=== PATIENT | female | born 1945 | race Caucasian/White ===

== ENCOUNTER 2016-07-16 03:41 | Inpatient (IN) | payer MEDICARE, MEDICAID ==
[~2016-07-16] VITALS: Ht 165.1 cm; Wt 57.5 kg
[2016-07-16] MEDS ORDERED: ASPIRIN 81 MG CHEW TAB ONE (05:04)
[2016-07-16] MEDS ORDERED: DUONEB INH ONE ×3 (05:19→22:55)
[2016-07-16] MEDS ORDERED: METHYLPRED SOD SUCC 125 MG/2 ML VIAL ONE (05:34)
[2016-07-16] MEDS ORDERED: AZITHROMYCIN 500 MG VIAL IV ONE (06:28)
[2016-07-16] MEDS ORDERED: SODIUM CHLORIDE 0.9% 1,000 ML ONE (06:29)
[2016-07-16] MEDS ORDERED: CEFTRIAXONE 1 GM VIAL ONE (06:29)
[2016-07-16] MEDS ORDERED: SODIUM CHLORIDE 0.9% 250 ML IV ONE (06:29)
[2016-07-16] MEDS ORDERED: SODIUM CHLORIDE 0.9% 100 ML IV ONE (06:29)
[2016-07-16 08:57] VITALS: BP_SYST 105; RESP 18; TEMP 98.1
[2016-07-16] MEDS ORDERED: SALINE FLUSH 10 ML FLUSH PRN (09:25)
[2016-07-16] MEDS ORDERED: ONDANSETRON 4 MG VIAL IV PRN (09:25)
[2016-07-16] MEDS ORDERED: DUONEB INH PRN (10:40)
[2016-07-16 12:03] VITALS: BP_SYST 101; RESP 18; TEMP 98.2
[2016-07-16] MEDS: CYPROHEPTADINE 4 MG TAB PO SCH ×3 (12:59→20:48)
[2016-07-16] MEDS: METHYLPRED SOD SUCC 40 MG VIAL IV SCH ×2 (12:59→20:49)
[2016-07-16] MEDS: ENOXAPARIN 40 MG/0.4 ML SYR SUBQ SCH (13:01)
[2016-07-16] MEDS: DUONEB INH SCH ×3 (13:59→23:00)
[2016-07-16 14:00] VITALS: RESP 20
[2016-07-16] MEDS: ACETAMINOPHEN 325 MG TAB PO PRN ×2 (14:17→18:41)
[2016-07-16] MEDS ORDERED: NEB-ALBUTEROL 2.5 MG/3 ML INH SCH (15:00)
[2016-07-16] MEDS ORDERED: RIFAMPIN 300 MG CAP PO SCH (16:00)
[2016-07-16 16:01] VITALS: BP_SYST 100; RESP 18; TEMP 98.1
[2016-07-16 16:03] VITALS: Ht 165.1 cm; Wt 57.5 kg
[2016-07-16] MEDS: MEGESTROL ACE 40 MG TAB PO SCH ×2 (16:53→20:49)
[2016-07-16] MEDS: NEB-BROVANA 15 MCG/2 ML INH SCH (19:07)
[2016-07-16 19:30] VITALS: BP_SYST 99; RESP 18; TEMP 98.6
[2016-07-16] MEDS: SALINE FLUSH 10 ML FLUSH SCH (20:49)
[2016-07-16 23:00] VITALS: BP_SYST 112; RESP 18; TEMP 97.8
[2016-07-17 03:00] VITALS: BP_SYST 106; RESP 17; TEMP 98.1
[2016-07-17] MEDS: SODIUM CHLORIDE 0.9% FLUSH BAG 500 ML IV SCH (04:43)
[2016-07-17] MEDS: NEB-BROVANA 15 MCG/2 ML INH SCH ×2 (07:16→19:44)
[2016-07-17] MEDS: DUONEB INH SCH ×4 (07:16→23:37)
[2016-07-17 07:33] VITALS: BP_SYST 110; RESP 20; TEMP 97.8
[2016-07-17] MEDS: SALINE FLUSH 10 ML FLUSH SCH ×2 (08:19→22:00)
[2016-07-17] MEDS: METHYLPRED SOD SUCC 40 MG VIAL IV SCH ×2 (08:19→21:59)
[2016-07-17] MEDS: CYPROHEPTADINE 4 MG TAB PO SCH ×4 (08:20→22:00)
[2016-07-17] MEDS: LORATADINE 10 MG TAB PO SCH (08:20)
[2016-07-17] MEDS: LEVOFLOXACIN 500 MG TAB PO SCH (08:20)
[2016-07-17] MEDS: MEGESTROL ACE 40 MG TAB PO SCH ×3 (08:20→22:00)
[2016-07-17] MEDS: ASPIRIN EC 81 MG TAB PO SCH (08:20)
[2016-07-17] MEDS: DOCUSATE SOD 100 MG CAP PO SCH (08:24)
[2016-07-17] MEDS ORDERED: ETHAMBUTOL 400 MG TAB PO SCH (09:00)
[2016-07-17] MEDS: ENOXAPARIN 40 MG/0.4 ML SYR SUBQ SCH (09:24)
[2016-07-17 11:44] VITALS: BP_SYST 129; RESP 20; TEMP 98.4
[2016-07-17 16:02] VITALS: BP_SYST 111; RESP 28; TEMP 98.1
[2016-07-17] MEDS: ACETAMINOPHEN 325 MG TAB PO PRN (17:30)
[2016-07-17 19:00] VITALS: BP_SYST 113; RESP 20; TEMP 97.3
[2016-07-17 23:00] VITALS: BP_SYST 131; RESP 20; TEMP 98.3
[2016-07-18 04:10] VITALS: BP_SYST 108; RESP 20; TEMP 98.2
[2016-07-18] MEDS: SODIUM CHLORIDE 0.9% FLUSH BAG 500 ML IV SCH (06:00)
[2016-07-18] MEDS: NEB-BROVANA 15 MCG/2 ML INH SCH ×2 (06:57→19:24)
[2016-07-18] MEDS: DUONEB INH SCH ×4 (06:57→22:19)
[2016-07-18 07:36] VITALS: BP_SYST 125; RESP 20; TEMP 97.4
[2016-07-18] MEDS: LORATADINE 10 MG TAB PO SCH (08:02)
[2016-07-18] MEDS: CYPROHEPTADINE 4 MG TAB PO SCH ×4 (08:02→20:56)
[2016-07-18] MEDS: MEGESTROL ACE 40 MG TAB PO SCH ×3 (08:02→20:50)
[2016-07-18] MEDS: ASPIRIN EC 81 MG TAB PO SCH (08:02)
[2016-07-18] MEDS: DOCUSATE SOD 100 MG CAP PO SCH (08:02)
[2016-07-18] MEDS: SALINE FLUSH 10 ML FLUSH SCH ×2 (08:03→20:50)
[2016-07-18] MEDS: LEVOFLOXACIN 500 MG TAB PO SCH (08:03)
[2016-07-18] MEDS: METHYLPRED SOD SUCC 40 MG VIAL IV SCH ×2 (08:03→20:50)
[2016-07-18] MEDS: ENOXAPARIN 40 MG/0.4 ML SYR SUBQ SCH (08:04)
[2016-07-18 11:49] VITALS: BP_SYST 122; RESP 20; TEMP 97.3
[2016-07-18 16:08] VITALS: BP_SYST 108; RESP 20; TEMP 98
[2016-07-18] MEDS: ACETAMINOPHEN 325 MG TAB PO PRN ×2 (16:26→20:51)
[2016-07-19] VITALS: BP_SYST 104; RESP 18; TEMP 98.6
[2016-07-19 04:04] VITALS: BP_SYST 103; RESP 18; TEMP 98.5
[2016-07-19] MEDS: SODIUM CHLORIDE 0.9% FLUSH BAG 500 ML IV SCH (05:19)
[2016-07-19] MEDS: NEB-BROVANA 15 MCG/2 ML INH SCH (06:50)
[2016-07-19] MEDS: DUONEB INH SCH (06:50)
[2016-07-19 08:11] VITALS: BP_SYST 105; RESP 18; TEMP 97.8
[2016-07-19] MEDS: SALINE FLUSH 10 ML FLUSH SCH (08:47)
[2016-07-19] MEDS: LORATADINE 10 MG TAB PO SCH (08:48)
[2016-07-19] MEDS: LEVOFLOXACIN 500 MG TAB PO SCH (08:48)
[2016-07-19] MEDS: DOCUSATE SOD 100 MG CAP PO SCH (08:48)
[2016-07-19] MEDS: ENOXAPARIN 40 MG/0.4 ML SYR SUBQ SCH (08:48)
[2016-07-19] MEDS: CYPROHEPTADINE 4 MG TAB PO SCH (08:48)
[2016-07-19] MEDS: MEGESTROL ACE 40 MG TAB PO SCH (08:48)
[2016-07-19] MEDS: METHYLPRED SOD SUCC 40 MG VIAL IV SCH (08:48)
[2016-07-19] MEDS: ASPIRIN EC 81 MG TAB PO SCH (08:48)
[2016-07-19 11:21] VITALS: BP_SYST 111; RESP 18; TEMP 98.2
[2016-07-19 12:21] VITALS: BP_SYST 111; RESP 18; TEMP 98.2
== END 2016-07-19 13:10 | disposition home or self-care (01) | DRG 189 ==
LOC: ENRESERVTM → ENRESERVDT → ER 03:41 → EMR 07:28 → PCU2 08:35 → ENPENDDIS 07-17 13:44 → OBSVTOIN 07-17 13:44
PROVIDERS: ADMIT Internal Medicine; ATTEND Internal Medicine
DX: J96.21 Acute and chronic respiratory failure with hypoxia (principal); E46 Unspecified protein-calorie malnutrition; A31.0 Pulmonary mycobacterial infection; Z99.81 Dependence on supplemental oxygen; E87.1 Hypo-osmolality and hyponatremia; J44.1 Chronic obstructive pulmonary disease with (acute) exacerbation; J96.22 Acute and chronic respiratory failure with hypercapnia; I10 Essential (primary) hypertension; I25.10 Atherosclerotic heart disease of native coronary artery without angina pectoris; Z87.891 Personal history of nicotine dependence; Z86.711 Personal history of pulmonary embolism; L40.9 Psoriasis, unspecified
CPT/HCPCS: 36415; 36600; 71010; 71020; 80053; 82550; 82803; 83605; 83735; 84484; 85025; 85610; 85730; 86141; 87040; 87299; 93005; 93306; 94640; 94799; 96361; 96365; 96367; 96375; 99219; 99223; 99232; 99238